=== PATIENT | male | born 2000 | race Two or more races ===

== ENCOUNTER 2024-01-19 10:05 | Emergency (ER) | payer OTHER ==
[~2024-01-19] VITALS: Ht 185.4 cm; Wt 121.6 kg
[2024-01-19] MEDS ORDERED: GUAIFENESIN/DEXTROMETHORPHAN 10ML BLIST.PACK PO ONE (11:15)
[2024-01-19] MEDS ORDERED: DEXAMETHASONE SODIUM PHOSPHATE 4 MG/ML VIAL IM ONE (11:15)
[2024-01-19] MEDS ORDERED: KETOROLAC TROMETHAMINE 60 MG VIAL IM ONE (11:15)
[2024-01-19 12:01] LABS: HEMOGLOBIN 17.2 g/dL (13-16.00); MEAN CELL VOLUME 89.7 fL (80.0-100.00); MEAN CORPUSCULAR HEMOGLOBIN 31.5 pg (27.00-32.0); MEAN CORPUSCULAR HGB CONC 35.1 g/dl (32.0-36.0); PLATELET COUNT 211 K/uL (150-450); RED BLOOD COUNT 5.47 M/uL (4.00-6.00); RED CELL DISTRIBUTION WIDTH 14.4 % (11.5-14.5)
[2024-01-19] MEDS ORDERED: TUSNEL LIQUID178 ML PO (12:31)
[2024-01-19] MEDS ORDERED: OSEL75CA PO (12:31)
== END 2024-01-19 13:24 | disposition home or self-care (01) ==
LOC: ER 10:07
PROVIDERS: General Practice
DX: J10.1 Influenza due to other identified influenza virus with other respiratory manifestations (principal); Z20.822 Contact with and (suspected) exposure to COVID-19